=== PATIENT | female | born 1955 | race Caucasian/White ===

== ENCOUNTER 2016-12-06 00:24 | Inpatient (IN) | payer OTHER ==
[~2016-12-06] VITALS: Ht 152.4 cm; Wt 44.9 kg
[2016-12-06 03:20] LABS: HEMOGLOBIN 11.2 gm/dl (12.3-15.3); RED BLOOD COUNT 3.84 M/UL (4.00-5.10)
[2016-12-06 03:29] LABS: BUN/CREATININE RATIO 32 (0-10)
[2016-12-06] MEDS ORDERED: KEPPRA500 MG PO (15:38)
[2016-12-06] MEDS ORDERED: SYNTHROID25 MCG PO (15:39)
[2016-12-06] MEDS ORDERED: ANTIVERT 25MG T25 MG PO (15:40)
[2016-12-06] MEDS ORDERED: PRAVACHOL80 MG PO (15:41)
[2016-12-06] MEDS ORDERED: LASIX20 MG PO (15:42)
[2016-12-06] MEDS ORDERED: NIFEDIPINE ER30 M1 PO (15:42)
[2016-12-06] MEDS ORDERED: MOBIC15 MG PO (15:43)
[2016-12-06] MEDS ORDERED: METFORMIN HCL1000 MG PO ×2 (15:44)
[2016-12-06] MEDS ORDERED: HYDROCHLOROTHIA25 MG PO (15:46)
[2016-12-07 05:27] LABS: HEMOGLOBIN 10.1 gm/dl (12.3-15.3); RED BLOOD COUNT 3.51 M/UL (4.00-5.10); WHITE BLOOD COUNT 15.7 K/UL (4.5-11.0)
[2016-12-08 07:58] LABS: HEMOGLOBIN 9.9 gm/dl (12.3-15.3); RED BLOOD COUNT 3.49 M/UL (4.00-5.10)
[2016-12-08 08:04] LABS: WHITE BLOOD COUNT 23.2 K/UL (4.5-11.0)
[2016-12-09 03:27] LABS: HEMOGLOBIN 9.9 gm/dl (12.3-15.3); RED BLOOD COUNT 3.47 M/UL (4.00-5.10)
[2016-12-09 03:38] LABS: WHITE BLOOD COUNT 29.8 K/UL (4.5-11.0)
[2016-12-10 05:00] LABS: HEMOGLOBIN 8.7 gm/dl (12.3-15.3)
[2016-12-10 05:34] LABS: RED BLOOD COUNT 3.05 M/UL (4.00-5.10); WHITE BLOOD COUNT 30.8 K/UL (4.5-11.0)
--- NOTE | 2016-12-10 14:12 | NUR ---
heart rate increase r/t patient watching horror movies.
--- NOTE | 2016-12-10 14:38 | NUR ---
REPORTED TO DR. GOVEA C/O MED STUDENT PATIENT'S VITAL SIGNS AND ACKNOLWEDGED.
[2016-12-11 06:33] LABS: HEMOGLOBIN 7.7 gm/dl (12.3-15.3)
[2016-12-11 06:48] LABS: RED BLOOD COUNT 2.67 M/UL (4.00-5.10); WHITE BLOOD COUNT 28.6 K/UL (4.5-11.0)
[2016-12-11 17:43] LABS: HEMOGLOBIN 7.5 gm/dl (12.3-15.3); RED BLOOD COUNT 2.61 M/UL (4.00-5.10)
--- NOTE | 2016-12-11 18:37 | NUR ---
REPORTED TO DR. GOVEA ABNORMAL LAB VALUES AND ACKNOWLEGED
[2016-12-12 06:27] LABS: HEMOGLOBIN 7.9 gm/dl (12.3-15.3); RED BLOOD COUNT 2.74 M/UL (4.00-5.10); WHITE BLOOD COUNT 27.4 K/UL (4.5-11.0)
[2016-12-13 06:59] LABS: RED BLOOD COUNT 2.82 M/UL (4.00-5.10); WHITE BLOOD COUNT 23.3 K/UL (4.5-11.0)
[2016-12-14 06:57] LABS: WHITE BLOOD COUNT 21.6 K/UL (4.5-11.0)
[2016-12-14 06:58] LABS: HEMOGLOBIN 7.9 gm/dl (12.3-15.3); RED BLOOD COUNT 2.81 M/UL (4.00-5.10)
[2016-12-15 05:12] LABS: HEMOGLOBIN 7.5 gm/dl (12.3-15.3); RED BLOOD COUNT 2.65 M/UL (4.00-5.10); WHITE BLOOD COUNT 21.2 K/UL (4.5-11.0)
[2016-12-15 12:17] LABS: GLUCOSE,CSF 73 mg/dL (50-80); TOTAL PROTEIN,CSF 50 mg/dL (20-45)
[2016-12-15 12:18] LABS: CRYPTOCOCCUS NEOFORMANS/GATTII Not Detected (Negative); CYTOMEGALOVIRUS Not Detected (Negative); ENTEROVIRUS Not Detected (Negative); ESCHERICHIA COLI K1 Not Detected (Negative); HAEMOPHILUS INFLUENZAE Not Detected (Negative); HERPES SIMPLEX VIRUS 1 Not Detected (Negative); HERPES SIMPLEX VIRUS 2 Not Detected (Negative); HUMAN HERPESVIRUS 6 Not Detected (Negative); HUMAN PARECHOVIRUS Not Detected (Negative); LISTERIA MONOCYTOGENES Not Detected (Negative); NEISERRIA MENINGITIDIS Not Detected (Negative); STREPTOCOCCUS AGALACTIAE Not Detected (Negative); STREPTOCOCCUS PNEUMONIAE Not Detected (Negative); VARICELLA ZOSTER VIRUS Not Detected (Negative)
[2016-12-16 04:34] LABS: RED BLOOD COUNT 2.5 M/UL (4.00-5.10); WHITE BLOOD COUNT 22.9 K/UL (4.5-11.0)
--- NOTE | 2016-12-16 17:57 | NUR ---
CURRENTLY PATIENT IS LYING IN LOW FOWLERS WITH FAMILY MEMBER AT BED SIDE. IV PATENT WITH FLUIDS RUNNING. WILL CONTINUE TO MONITOR.
[2016-12-16 19:16] LABS: HEMOGLOBIN 7.3 gm/dl (12.3-15.3); RED BLOOD COUNT 2.6 M/UL (4.00-5.10); WHITE BLOOD COUNT 27.2 K/UL (4.5-11.0)
== END 2016-12-18 18:25 | disposition short-term general hospital (02) | DRG 682 ==
LOC: ER1 00:24 → MED SURG 4 07:00 → ZEROF 07:00 → PROG CARE 14:23 → MED SURG 4 12-07 20:20
PROVIDERS: Family Medicine; Internal Medicine; ADMIT Internal Medicine Infectious Disease
PROC: 009U3ZX Drainage of Spinal Canal, Percutaneous Approach, Diagnostic (ICD-10-PCS; principal; 2016-12-15)
PROC: B01BZZZ Fluoroscopy of Spinal Cord (ICD-10-PCS; 2016-12-15)
DX: N17.9 Acute kidney failure, unspecified (principal); G93.41 Metabolic encephalopathy; E46 Unspecified protein-calorie malnutrition; Z68.1 Body mass index [BMI] 19.9 or less, adult; E87.0 Hyperosmolality and hypernatremia; I31.3 Pericardial effusion (noninflammatory); J90 Pleural effusion, not elsewhere classified; K52.1 Toxic gastroenteritis and colitis; E87.2 Acidosis; E87.6 Hypokalemia; E83.42 Hypomagnesemia; G40.909 Epilepsy, unspecified, not intractable, without status epilepticus; I27.2 Other secondary pulmonary hypertension; E03.9 Hypothyroidism, unspecified; E78.5 Hyperlipidemia, unspecified; I12.9 Hypertensive chronic kidney disease with stage 1 through stage 4 chronic kidney disease, or unspecified chronic kidney disease; E11.22 Type 2 diabetes mellitus with diabetic chronic kidney disease; N18.9 Chronic kidney disease, unspecified; D50.9 Iron deficiency anemia, unspecified; E53.8 Deficiency of other specified B group vitamins; I34.0 Nonrheumatic mitral (valve) insufficiency; T36.0X5A Adverse effect of penicillins, initial encounter; D72.829 Elevated white blood cell count, unspecified; R50.9 Fever, unspecified; M25.572 Pain in left ankle and joints of left foot; M25.571 Pain in right ankle and joints of right foot; M25.562 Pain in left knee; M25.561 Pain in right knee; M25.512 Pain in left shoulder; M25.511 Pain in right shoulder; J32.0 Chronic maxillary sinusitis; J32.2 Chronic ethmoidal sinusitis; R91.1 Solitary pulmonary nodule; N20.0 Calculus of kidney; G89.29 Other chronic pain; Z79.84 Long term (current) use of oral hypoglycemic drugs; Z79.1 Long term (current) use of non-steroidal anti-inflammatories (NSAID); Z79.899 Other long term (current) drug therapy; Z82.49 Family history of ischemic heart disease and other diseases of the circulatory system
CPT/HCPCS: ECHO; 36415; 36600; 70450; 70551; 71010; 71260; 74160; 77003; 78806; 80048; 80053; 80307; 81001; 82140; 82272; 82550; 82607; 82728; 82746; 82803; 82945; 82962; 83540; 83550; 83605; 83615; 83735; 84100; 84157; 84425; 84439; 84443; 84550; 85025; 85027; 86039; 86140; 86403; 86431; 86850; 86900; 86901; 86920; 87040; 87070; 87086; 87205; 87210; 87390; 87483; 89051; 93005; 93306; 96372; 97110; 97530; 97535; 99285; A9570; G0480; J1335; J1953; J2060; J2185; J2543; J3480; J7030; J7050; J7070; J7120; Q9962